=== PATIENT | male | born 1995 | race African-American/Black ===

== ENCOUNTER 2018-06-14 20:58 | Emergency (ER) | payer MEDICAID, OTHER ==
[~2018-06-14] VITALS: Ht 190.5 cm; Wt 85.8 kg
[2018-06-14 21:09] VITALS: Ht 190.5 cm; Wt 85.8 kg
[2018-06-14] MEDS ORDERED: SODIUM CHLORIDE 0.9% 1L BAG IV* STA (22:40)
[2018-06-14] MEDS ORDERED: IBUPROFEN 800 MG TAB PO ONE (23:00)
[2018-06-14] MEDS ORDERED: ACETAMINOPHEN 325 MG TAB PO ONE (23:00)
[2018-06-14 23:51] VITALS: BP 120/72
[2018-06-15] MEDS ORDERED: ACET500C5 PO (00:38)
[2018-06-15] MEDS ORDERED: OSEL75CA23 PO (00:38)
[2018-06-15] MEDS ORDERED: D-ME473S2 PO (00:38)
[2018-06-15] MEDS ORDERED: IBUP-1542 PO (00:38)
[2018-06-15 00:42] VITALS: PULSE 107; RESP 20
[2018-06-15] MEDS ORDERED: OSELTAMIVIR 75 MG CAP PO ONE (01:00)
--- NOTE | 2018-06-15 01:17 | ERD ---
ER Documentation Chief Complaint Chief Complaint flu-liked symptoms x 2 days HPI 23-year-old male patient with no significant past medical history presents to ED complaining of fever, body aches, cough, rhinorrhea. Patient reports that he has not taking any medications. States that he has a productive cough. Reports that his brother is also sick with similar symptoms. Denies any wheezing, shortness of breath, chest pain, abdominal pain, nausea, vomiting, diarrhea. ROS All systems reviewed and are negative except as per history of present illness. Medications Home Meds Active Scripts Dextromethorphan Hb-Promethazine Hcl* (Promethazine DM* Syrup) 473 Ml Syrup, 5 ML PO Q6 PRN for COUGH, #120 ML Prov:AVERY LINDSAY PA-C 06/15/18 Acetaminophen* (Tylophen*) 500 Mg Capsule, 1 CAP PO Q6H PRN for PAIN AND OR ELEVATED TEMP, #20 CAP Prov:AVERY LINDSAY PA-C 06/15/18 Ibuprofen* (Motrin*) 600 Mg Tab, 600 MG PO Q6, #30 TAB Prov:AVERY LINDSAY PA-C 06/15/18 Oseltamivir Phosphate* (Tamiflu*) 75 Mg Capsule, 75 MG PO BID, #9 CAP You have taken your first dose in the ER. There are 9 tablets left to take once in the morning and once at night for a total of 5 days. Prov:AVERY LINDSAY PA-C 06/15/18 Allergies Allergies: Coded Allergies: No Known Allergy (Unverified , 06/14/18) PMhx/Soc Medical and Surgical Hx: pt denies Medical Hx, pt denies Surgical Hx Hx Alcohol Use: Yes Hx Substance Use: Yes Hx Tobacco Use: Yes Smoking Status: Light tobacco smoker FmHx Family History: No diabetes, No coronary disease Physical Exam Vitals Vital Signs Date Temp Pulse Resp B/P (MAP) Pulse Ox O2 O2 Flow FiO2 Time Delivery Rate 06/15/18 99.3 107 20 96 Room Air 00:42 06/14/18 100.8 115 20 120/72 96 Room Air 23:51 (88) 06/14/18 104.0 22:51 06/14/18 104.0 22:51 06/14/18 104.0 144 22 111/64 97 21:09 (80) Physical Exam Const: [id number]-mbx-bbhdbkxzk, well-nourished. In no acute distress. Head: Atraumatic, normocephalic Eyes: Normal Conjunctiva without injection. No purulent discharge. PERRL. EOMI ENT: Normal external ear. Ear canal without erythema. Tympanic membrane pearly pozo without effusion or bulging. Nasal canal clear with normal turbinates. Moist oropharynx without tonsillar exudates. Non-erythematous pharynx. Uvula midline. No drooling. No trismus. Neck: Full range of motion. No meningismus. No cervical lymphadenopathy. Resp: Clear to auscultation bilaterally. No wheezing, rhonchi, rales, or crackles. No accessory muscle use. No retractions. Cardio: Regular rate and rhythm. No murmurs, rubs or gallops. Abd: Soft, non tender, non distended. Normal bowel sounds. No palpable masses. No rebound tenderness. No guarding. Skin: No petechiae or rashes Back: No midline tenderness. No CVA tenderness. Ext: No cyanosis, or edema. Neur: Awake and alert. Psych: Normal Mood and Affect Result Diagram: 06/14/18225706/14/182257 Results 24 hrs Laboratory Tests Test 06/14/18 22:58 White Blood Count 6.7 10^3/ul Red Blood Count 5.57 10^6/ul Hemoglobin 14.9 g/dl Hematocrit 45.6 % Mean Corpuscular Volume 81.9 fl Mean Corpuscular Hemoglobin 26.8 pg Mean Corpuscular Hemoglobin Concent 32.7 g/dl Red Cell Distribution Width 12.1 % Platelet Count 162 10^3/UL Mean Platelet Volume 10.3 fl Immature Granulocytes % 0.300 % Neutrophils % % Lymphocytes % % Monocytes % % Eosinophils % % Basophils % % Nucleated Red Blood Cells % 0.0 /100WBC Immature Granulocytes # 0.020 10^3/ul Neutrophils # 10^3/ul Lymphocytes # 10^3/ul Monocytes # 10^3/ul Eosinophils # 10^3/ul Basophils # 10^3/ul Nucleated Red Blood Cells # 10^3/ul Urine Color YELLOW Urine Clarity CLEAR Urine pH 5.0 Urine Specific Drummond 1.031 Urine Ketones 2+ mg/dL Urine Nitrite NEGATIVE mg/dL Urine Bilirubin NEGATIVE mg/dL Urine Urobilinogen NEGATIVE mg/dL Urine Leukocyte Esterase NEGATIVE Agustina/ul Urine Microscopic RBC 0 /HPF Urine Microscopic WBC 1 /HPF Urine Mucus FEW /HPF Urine Hemoglobin NEGATIVE mg/dL Urine Glucose NEGATIVE mg/dL Urine Total Protein 1+ mg/dl Sodium Level 140 mmol/L Potassium Level 3.8 mmol/L Chloride Level 98 mmol/L Carbon Dioxide Level 26 mmol/L Anion Gap 16 Blood Urea Nitrogen 11 mg/dl Creatinine 1.01 mg/dl Est Glomerular Filtrat Rate mL/min > 60 mL/min Glucose Level 98 mg/dl Calcium Level 9.7 mg/dl Troponin I 0.026 ng/ml Monoscreen Negative Current Medications Medications Dose Sig/Gagan Start Time Status Last (Trade) Ordered Route PRN Stop Time Admin Dose Reason Admin Ibuprofen 800 mg ONCE ONCE 06/14/18 DC 06/14/18 (Motrin) PO 23:00 06/14/18 22:51 23:01 650 mg ONCE ONCE 06/14/18 DC 06/14/18 Acetaminophen PO 23:00 06/14/18 22:51 (Tylenol 23:01 Tab) Sodium 2,570 ml BOLUS OVER 2 06/14/18 DC 06/14/18 Chloride HOURS STAT 22:40 06/14/18 22:52 (NS) IV* 22:44 Oseltamivir 75 mg ONCE ONCE 06/15/18 DC 06/15/18 Phosphate PO 01:00 06/15/18 00:43 (Tamiflu) 01:00 Procedures/MDM 23-year-old male patient with no significant past medical history presents to the ED complaining of flulike symptoms that started 2 days ago. Patient has a fever of 104.0. Patient is tachycardic at 144. Ibuprofen, Tylenol was ordered to further dungeon patient's temperature. She was given 30 mL/kg normal saline. A CBC, BMP, troponin, EKG, urinalysis, urine culture, chest x-ray, influenza was ordered to further evaluate patient. CBC: No leukocytosis. No e/o of systemic infection. No e/o anemia. BMP: No e/o severe acidosis, alkalosis, renal failure, diabetic ketoacidosis, liver disease Urine: No leukocyte esterase, no nitrites, no hematuria. Influenza A positive Monospot negative PROCEDURE: XR Chest. CLINICAL INDICATION: Cough, fever. TECHNIQUE: Single frontal chest x-ray. COMPARISON: None available. FINDINGS: The cardiomediastinal silhouette is unremarkable. No pneumothorax, pleural effusion or consolidation is seen. No acute osseous abnormality is noted. IMPRESSION: 1. No acute cardiopulmonary abnormality. EKG reviewed and interpreted by Dr. Bland Rate/Rhythm: [125 bpm, Sinus Tachycardia] No ectopy, no ST elevations, normal axis. QRS, ST, T-waves: [No changes consistent w/ acute ischemia] Impression: [No evidence of ischemia or arrhythmia] Influenza A positive. Patient was given Tamiflu 75 mg p.o. Low suspicion for sepsis, acute myocardial infarction, pneumothorax, pneumonia, cardiac tamponade, Uymfs-Hiohcnqcp-Zxicb Syndrome, Brugada Syndrome, pulmonary embolism, AAA, aortic dissection, thoracic aortic dissection, endocarditis, myocarditis, pericarditis, cocaine-related ischemia, Boerhaave's syndrome, cardiac dysrhythmias,meningitis, intracranial bleed, seizure, stroke, TIA or other emergent conditions. Diagnosis: Influenza Discharge medications: Promethazine DM, Tylenol, Ibuprofen, Tamiflu Follow up with primary care physician in 1-2 days. Instructed patient to return to the ED sooner for any worsening symptoms. Patient's questions were answered. Patient is hemodynamically stable. Patient understood and agreed with discharge plan. Patient discharged stable. Disclaimer: Inadvertent spelling and grammatical errors are likely due to EHR/dictation software use and do not reflect on the overall quality of patient care. Also, please note that the electronic time recorded on this note does not necessarily reflect the actual time of the patient encounter. Departure Diagnosis: Primary Impression: Influenza Condition: Stable Patient Instructions: Influenza (Adult) Referrals: [facility], [facility] YOU HAVE RECEIVED A MEDICAL SCREENING EXAM AND THE RESULTS INDICATE THAT YOU DO NOT HAVE A CONDITION THAT REQUIRES URGENT TREATMENT IN THE EMERGENCY DEPARTMENT. FURTHER EVALUATION AND TREATMENT OF YOUR CONDITION CAN WAIT UNTIL YOU ARE SEEN IN YOUR DOCTORS OFFICE WITHIN THE NEXT 1-2 DAYS. IT IS YOUR RESPONSIBILITY TO MAKE AN APPOINTMENT FOR FOLOW-UP CARE. IF YOU HAVE A PRIMARY DOCTOR --you should call your primary doctor and schedule an appointment IF YOU DO NOT HAVE A PRIMARY DOCTOR YOU CAN CALL OUR PHYSICIAN REFERRAL HOTLINE AT IF YOU CAN NOT AFFORD TO SEE A PHYSICIAN YOU CAN CHOSE FROM THE FOLLOWING [facility] [address] [facility] [address] [facility] [address] [facility] [address] [facility] [address] [facility]. [facility]. [address] [facility]. [facility] YOU HAVE RECEIVED A MEDICAL SCREENING EXAM AND THE RESULTS INDICATE THAT YOU DO NOT HAVE A CONDITION THAT REQUIRES URGENT TREATMENT IN THE EMERGENCY DEPARTMENT. FURTHER EVALUATION AND TREATMENT OF YOUR CONDITION CAN WAIT UNTIL YOU ARE SEEN IN YOUR DOCTORS OFFICE WITHIN THE NEXT 1-2 DAYS. IT IS YOUR RESPONSIBILITY TO M KENDRA AN APPOINTMENT FOR FOLOW-UP CARE. IF YOU HAVE A PRIMARY DOCTOR --you should call your primary doctor and schedule and appointment IF YOU DO NOT HAVE A PRIMARY DOCTOR YOU CAN CALL OUR PHYSICIAN REFERRAL HOTLINE AT . IF YOU CAN NOT AFFORD TO SEE A PHYSICIAN YOU CAN CHOSE FROM THE FOLLOWING [facility] INSTITUTIONS: [facility] [address] [place] [address] [facility] [address] [place] [address] [facility] [address] [place] [address] [facility] URGENT CARE/SPECIALTIES Additional Instructions: Call your primary care doctor TOMORROW for an appointment during the next 2-3 days.See the doctor sooner or return here if your condition worsens before your appointment time. AVERY LINDSAY PA-C Jun 15, 2018 01:17
== END 2018-06-15 00:50 | disposition home or self-care (01) ==
LOC: FTE 20:58
DX: J10.1 Influenza due to other identified influenza virus with other respiratory manifestations (principal); F17.210 Nicotine dependence, cigarettes, uncomplicated
CPT/HCPCS: 71045; 80048; 81001; 84484; 85025; 86308; 87400; 93005; J7030; Z7610